=== PATIENT | female | born 1960 | race Caucasian/White ===

== ENCOUNTER 2016-08-21 07:32 | Emergency (ER) | payer OTHER ==
[~2016-08-21] VITALS: Ht 170.2 cm; Wt 100.8 kg
[~2016-08-21 07:32] MED LIST: ALBUTEROL SULF8.5 GM IH; GABAPENTIN100 MG PO; IRON160 M1 PO; LASIX10 MG PO; LASIX20 MG PO; MULTI-DAY VITA1 EACH PO; MULTIPLE VITAM1 EAC4 PO; NEXIUM40 MG PO; PAXIL40 MG PO; PERCOCET 5/31 TABLET PO; TESSALON PERLE100 MG PO; VALTREX1000 MG PO; VITAMIN A A1 CAPSULE PO; VITAMIN B1,100 MG/ML IM; ZOVIRAX400 MG PO
[2016-08-21] MEDS ORDERED: NAPROXEN500 MG PO (09:02)
[2016-08-21 10:05] VITALS: BP 132/71
== END 2016-08-21 10:06 | disposition home or self-care (01) ==
LOC: EXP 07:32 → EME 07:32 → EXP 10:06
DX: S46.912A Strain of unspecified muscle, fascia and tendon at shoulder and upper arm level, left arm, initial encounter (principal)
CPT/HCPCS: 73030; 99281; 99284

== ENCOUNTER 2016-12-28 07:28 | Day surgery (SDC) | payer OTHER ==
[~2016-12-28] VITALS: Ht 170.2 cm; Wt 97.5 kg
[~2016-12-28 07:28] MED LIST changes: +NAPROXEN500 MG PO
== END 2016-12-28 09:20 | disposition home or self-care (01) ==
LOC: PAIN 07:28 → SDC 08:15 → PAIN 08:15
DX: M47.812 Spondylosis without myelopathy or radiculopathy, cervical region (principal); M54.2 Cervicalgia; M48.00 Spinal stenosis, site unspecified; K21.9 Gastro-esophageal reflux disease without esophagitis; F41.9 Anxiety disorder, unspecified; E66.01 Morbid (severe) obesity due to excess calories; Z68.34 Body mass index [BMI] 34.0-34.9, adult; Z82.49 Family history of ischemic heart disease and other diseases of the circulatory system; Z80.3 Family history of malignant neoplasm of breast; Z82.3 Family history of stroke
CPT/HCPCS: J1030; J2250; J3010; S0020

== ENCOUNTER 2017-01-04 07:19 | Day surgery (SDC) | payer OTHER ==
[~2017-01-04] VITALS: Ht 170.2 cm; Wt 97.5 kg
== END 2017-01-04 08:50 | disposition home or self-care (01) ==
LOC: PAIN 07:19 → SDC 08:00 → PAIN 08:00
DX: M47.812 Spondylosis without myelopathy or radiculopathy, cervical region (principal); F41.9 Anxiety disorder, unspecified; M48.00 Spinal stenosis, site unspecified; M99.81 Other biomechanical lesions of cervical region; Z98.84 Bariatric surgery status; E66.01 Morbid (severe) obesity due to excess calories; Z68.34 Body mass index [BMI] 34.0-34.9, adult; Z82.49 Family history of ischemic heart disease and other diseases of the circulatory system; Z80.3 Family history of malignant neoplasm of breast; Z82.3 Family history of stroke; Z88.5 Allergy status to narcotic agent; Z88.6 Allergy status to analgesic agent
CPT/HCPCS: J1030; J2250; J3010; S0020

== ENCOUNTER 2017-04-05 12:24 | Day surgery (SDC) | payer OTHER ==
[~2017-04-05] VITALS: Ht 170.2 cm; Wt 95.3 kg
== END 2017-04-05 14:40 | disposition home or self-care (01) ==
LOC: PAIN 12:24 → SDC 13:15 → PAIN 13:15
PROC: 01513ZZ Destruction of Cervical Nerve, Percutaneous Approach (ICD-10-PCS; principal; 2017-04-05)
DX: M47.812 Spondylosis without myelopathy or radiculopathy, cervical region (principal); M48.00 Spinal stenosis, site unspecified; F41.9 Anxiety disorder, unspecified; Z98.84 Bariatric surgery status; Z88.6 Allergy status to analgesic agent; Z88.5 Allergy status to narcotic agent
CPT/HCPCS: J1030; J2250; J3010; S0020

== ENCOUNTER 2017-04-12 07:47 | Day surgery (SDC) | payer OTHER ==
[~2017-04-12] VITALS: Ht 170.2 cm; Wt 95.3 kg
== END 2017-04-12 09:15 | disposition home or self-care (01) ==
LOC: PAIN 07:47 → SDC 08:30 → PAIN 08:30
PROC: 01513ZZ Destruction of Cervical Nerve, Percutaneous Approach (ICD-10-PCS; principal; 2017-04-12)
DX: M47.812 Spondylosis without myelopathy or radiculopathy, cervical region (principal); F41.9 Anxiety disorder, unspecified; F51.02 Adjustment insomnia; E66.01 Morbid (severe) obesity due to excess calories; M48.02 Spinal stenosis, cervical region; Z68.33 Body mass index [BMI] 33.0-33.9, adult; Z88.5 Allergy status to narcotic agent; Z88.6 Allergy status to analgesic agent
CPT/HCPCS: J1030; J2250; J3010; S0020